=== PATIENT | male | born 1990 | race Caucasian/White ===

== ENCOUNTER 2021-05-29 09:58 | Emergency (ER) | payer OTHER, SELFPAY ==
[~2021-05-29] VITALS: Ht 193 cm; Wt 95.3 kg
[2021-05-29 10:50] VITALS: BP_SYST 132
--- NOTE | 2021-05-29 10:50 | NUR ---
Patient to TENT2 evaluation. Side rails up.
--- NOTE | 2021-05-29 11:00 | NUR ---
ER at bedside examining patient.
--- NOTE | 2021-05-29 11:05 | NUR ---
PT PRESENTS TO ED C/O SWOLLEN TONSILS WITH H/O OF CHRONIC TONSILLITIS
[2021-05-29 12:24] LABS: MONOTEST NEGATIVE (NEGATIVE)
[2021-05-29 13:00] LABS: STREPTOCOCCUS A SCREEN (RAPID) NEGATIVE (NEGATIVE)
[2021-05-29] MEDS ORDERED: IBUP-1971 PO (14:06)
[2021-05-29] MEDS ORDERED: PRED20TA PO (14:06)
[2021-05-29 14:55] VITALS: BP_SYST 132
--- NOTE | 2021-05-29 14:55 | NUR ---
Patient given written and verbal discharge instructions and verbalizes understanding. ER MD discussed with patient the results and treatment provided. Patient in stable condition. ID arm band removed. Rx of PREDNISONE,MOTRIN given. Patient educated on pain management and to follow up with PMD. Pain Scale 3. Opportunity for questions provided and answered. Medication side effect fact sheet provided.
== END 2021-05-29 14:55 | disposition home or self-care (01) ==
LOC: SED 09:58
DX: J03.90 Acute tonsillitis, unspecified (principal); Z20.822 Contact with and (suspected) exposure to COVID-19
CPT/HCPCS: 36415; 86308-TC; 86403; 87081; 99283